=== PATIENT | male | born 1955 | race Caucasian/White ===

== ENCOUNTER 2018-12-07 14:07 | Day surgery (SDC) | payer MEDICARE, SELFPAY ==
--- NOTE | 2018-12-07 14:51 | SUR.PREOP ---
Pt arrived for colonoscopy. Note on check in sheet states Pt has an RV in parking lot, he is alone. While interviewing pt prior to procedure, pt states he did not do a bowel prep and has had 2 BM since yesterday which is the last time he ate or drank anything. Pt reports stool is formed and has blood. When questioned about the blood he states that the blood is liquid, no clots and surrounds the stool. Pt reports he saved the stool this morning in a jar and offers several times to go get it for us to see. This request was declined. Pt reports he never received any bowel prep information. Explained it was probably mailed to him which he states he did not check the mail every day. Informed Dr Cabrales of lack of bowel prep and plan is to reschedule him. Went to [facility] and spoke with Mishel, master scheduler. She provided bowel prep instructions which were handed to pt in waiting room. Pt asks if he can take a different laxative, explained to pt he must take the meds listed on the form and follow the directions. Mishel will call pt tomorrow to reschedule. Also informed pt that he will need someone with him for colonoscopy. Pt states that will be difficult but he will try.
== END 2018-12-07 14:10 | disposition home or self-care (01) ==
PROVIDERS: PCP Family Medicine; Visit Provider Surgery

== ENCOUNTER 2018-12-24 13:43 | Emergency (ER) | payer MEDICARE, SELFPAY ==
[2018-12-24 13:45] VITALS: BP 148/94; PULSE 67; RESP 18; TEMP 37.2; O2SAT 99; BMI 23.7
--- NOTE | 2018-12-24 14:15 | DI.RAD.S_ITS ---
PROCEDURE: XR ACUTE ABDOMEN SERIES INDICATIONS: Abdominal pain, no BM TECHNIQUE: One view chest and two views of the abdomen were acquired. COMPARISON: None. FINDINGS: Surgical changes and devices: There are postsurgical changes in the mediastinum compatible prior CABG. A prosthetic aortic valve is also noted. Chest: There are small bilateral pleural effusions, left greater than right, with associated bibasilar compressive atelectasis or consolidation. Mild pulmonary vascular prominence is noted suggestive of mild edema. No pneumoperitoneum. Abdomen: Bowel gas pattern demonstrates a moderate to large amount of colonic stool suggestive of constipation or obstipation. There is gas in the rectum. No suspicious calcifications. Bones: No suspicious bony lesions. IMPRESSION: 1. Moderate to large amount of colonic stool suggestive of constipation or obstipation. No definite bowel obstruction. 2. Small bilateral pleural effusions with associated bibasilar compressive atelectasis or consolidation. There is suspected mild pulmonary edema. Dictated by: Pranav Beard M.D. on 12/24/2018 at 14:13 Approved by: Pranav Beard M.D. on 12/24/2018 at 14:15
--- NOTE | 2018-12-24 14:31 | PC.NURSE ---
home and i have a friend that is a trauma nurse, that will help me i just need my colon cleared out, im fine, my turn around was yesterday.
[2018-12-24 14:33] LABS: Add Manual Diff / Slide Review NO; Basophils Absolute Auto 0 /uL (0-100); Basophils Percent Auto 0.3 % (0-2); Eosinophils Absolute Auto 100 /uL (0-450); Eosinophils Percent Auto 1.2 % (2-4); Hematocrit 38.6 % (41-53); Hemoglobin 13.4 g/dL (13.5-17.5); Lymphocytes Absolute Auto 800 /uL (1100-4500); Lymphocytes Percent Auto 7.1 % (25-40); Mean Corpuscular HGB Conc 34.7 % (30-36); Mean Corpuscular Hemoglobin 29.6 PG (26-34); Mean Corpuscular Volume 85.4 fL (80-100); Monocytes Absolute Auto 1700 /uL (0-900); Monocytes Percent Auto 15.9 % (3-14); Neutrophils Absolute Auto 8100 /uL (1500-7000); Neutrophils Percent Auto 75.5 % (50-75); Platelet Count 285 X10^3/uL (150-400); Red Blood Cell Count 4.52 X10^6/uL (4.5-5.9); Red Cell Distribution Width 14.9 % (11.6-14.8); White Blood Cell Count 10.7 X10^3/uL (4.5-11.0)
--- NOTE | 2018-12-24 14:33 | PC.NURSE ---
incision site intact, (chest).
[2018-12-24 14:40] LABS: INR 2.5 (0.9-1.3); Prothrombin Time 28.7 SECONDS (10.1-12.7)
[2018-12-24 14:43] LABS: PTT Partial Thromboplastin Tim 38 SECONDS (26.4-36.2)
[2018-12-24 14:46] LABS: BUN Creatinine Ratio 31.1 (6-22); Blood Urea Nitrogen 28 mg/dL (9-20); Calcium 8.6 mg/dL (8.4-10.2); Carbon Dioxide 28 mmol/L (22-32); Chloride 98 mmol/L (98-107); Creatine Kinase 96 U/L (55-170); Estimated Glomerular Filt Rate > 60.0 mL/min (>60); Glucose 109 mg/dL (80-110); HEMOLYSIS 21 (0-50); Magnesium 2.3 mg/dL (1.6-2.3); Potassium 4.1 mmol/L (3.4-5.1); Sodium 136 mmol/L (137-145)
[2018-12-24 15:00] VITALS: BP 139/90; PULSE 117; RESP 21; O2SAT 96
[2018-12-24 15:30] VITALS: BP 143/75; PULSE 115; RESP 20; O2SAT 96
[2018-12-24 16:08] VITALS: BP 130/82; PULSE 114; O2SAT 97
--- NOTE | 2018-12-24 16:32 | ED.CHESTPAIN ---
HPI - Chest Pain General Chief Complaint: Abdominal Pain Stated Complaint: RECENT HEART ATTACK Time Seen by Provider: 12/24/18 14:10 Source: patient Mode of arrival: Wheelchair Limitations: no limitations History of Present Illness HPI narrative: 63-year-old male with history of hypertension, hyperlipidemia, coronary artery disease, recent cardiac arrest with subsequent cardiac bypass and aortic root repair presents via cab after signing out [facility] from [facility] this morning. The patient still had bilateral chest tubes when he was requesting discharge, the staff in billing I am took significant effort to convince him to stay but in the end he was able to demonstrate capacity and chose to leave. He admits to feeling a bit weak and has occasional short of breath but has little in the way of significant chief complaints. Nearly immediately upon arrival here he is regretful for the way he left [facility] a.m. and seems to achieved some clarity regarding his options moving forward. complaint: other Onset (ago): day(s) Duration: intermittent Onset: during rest Pain location: substernal Severity: mild Quality: sharp Relieving factors: remaining still Context: recent surgery Treatments prior to arrival chest pain: none Related Data Home Medications Medication Instructions Recorded Confirmed cholecalciferol (vitamin D3) 1,000 1,000 unit PO DAILY 11/09/18 11/09/18 unit capsule magnesium citrate 125 mg capsule 125 mg PO DAILY cap 11/09/18 11/09/18 vitamin B complex 1 tab PO DAILY 11/09/18 11/09/18 vitamin E 200 unit capsule 200 unit PO DAILY 11/09/18 11/09/18 Allergies Allergy/AdvReac Type Severity Reaction Status Date / Time No Known Drug Allergies Allergy Verified 12/24/18 14:27 Review of Systems Constitutional Constitutional: Denies chills, Reports fatigue, Denies fever(s), Denies frequent falls, Denies lethargy and Reports weakness Eyes Eyes: Denies change in vision, Denies eye discharge, Denies irritation and Denies loss of vision ENT Ears, Nose, Mouth, and Throat: Denies change in voice, Denies dizziness, Denies neck pain, Denies sore throat and Denies throat swelling Cardiovascular Cardiovascular: Reports chest pain, Denies irregular heart rhythm, Denies lightheadedness, Denies palpitations, Denies dyspnea, Denies dyspnea on exertion and Denies orthopnea Respiratory Respiratory: Denies cough, Denies dyspnea, Denies dyspnea on exertion and Denies wheezing Gastrointestinal Gastrointestinal: Denies abdominal pain, Denies change in bowel habits, Denies diarrhea, Denies nausea and Denies vomiting Genitourinary Genitourinary: Denies hematuria, Denies flank pain, Denies urinary incontinence and Denies urinary urgency Musculoskeletal Musculoskeletal: Denies back pain, Denies muscle weakness, Denies neck pain, Denies numbness and Denies tingling Integumentary/Breasts Skin/Breast: Denies pruritus, Denies erythema, Denies rash and Denies wounds Neurologic Neurologic: Denies behavioral changes, Denies confusion, Denies dizziness, Denies frequent falls, Denies loss of vision, Denies numbness, Denies tingling and Reports weakness Psychiatric Psychiatric: Denies anxiety, Denies behavioral changes, Denies confusion, Denies depression, Denies homicidal ideation and Denies suicidal ideation Endocrine Endocrine: Reports fatigue, Denies flushing and Denies palpitations Hematologic/Lymphatic Hematologic/Lymphatic: Denies easy bruising Allergic/Immunologic Allergic/Immunologic: Denies urticaria, Denies throat swelling and Denies wheezing [facility] Medical History (Updated 12/24/18 @ 16:38 by Panfilo Kamara DO) Cardiac arrest (Acute) History of high blood pressure (Acute) Hx of stroke associated with dehydration (Resolved) Surgical History (Updated 12/24/18 @ 16:36 by Panfilo Kamara DO) S/P CABG x 2 (Acute) Social History substance use type: marijuana Social History substance use type: marijuana Exam Narrative Exam Narrative: GENERAL: [63] year old patient appears stated age. He appears a bit weak and unwell but in no significant distress. requires 2 people to assist him out of the wheelchair HEAD: Atraumatic. Normocephalic. EYES: Pupils equal round and reactive. Extraocular motions intact. No scleral icterus. No injection or drainage. ENT: Nose without bleeding, purulent drainage. Throat without erythema, tonsillar hypertrophy or exudate. Airway patent. NECK: Trachea midline. Non tender CARDIOVASCULAR: Regular rate and rhythm without murmurs, gallops, or rubs. Chest incision is clean, dry and intact RESPIRATORY: Clear to auscultation. Breath sounds equal bilaterally. No wheezes, rales, or rhonchi. GASTROINTESTINAL: Abdomen soft, non-tender, nondistended. EXTREMITIES: No edema or joint tenderness. BACK: Nontender without deformity or crepitance. No flank tenderness. NEURO: AOx3. SKIN: No rash or erythema of visible areas Initial Vital Signs Initial Vital Signs: Vital Signs Temperature 99 F 12/24/18 13:45 Pulse Rate 67 12/24/18 13:45 Respiratory Rate 18 12/24/18 13:45 Blood Pressure 148/94 H 12/24/18 13:45 Pulse Oximetry 99 12/24/18 13:45 Course Orders Ordered: Discontinued Medications Methylnaltrexone [place] (Relistor) 12 mg SUBCUT NOW ONE Stop: 12/24/18 14:26 Last Admin: 12/24/18 18:52 Dose: Not Given Documented by: MEISENB Consultations Consultation #1: Discussion with cardiothoracic surgeon at [facility], he is happy to accept patient back on his service Vital Signs Vital signs: Vital Signs - 8 hr 12/24/18 13:45 12/24/18 15:00 12/24/18 15:30 Temperature 99 F Pulse Rate 67 117 H 115 H Respiratory Rate 18 21 20 Blood Pressure 148/94 H Blood Pressure [Right Arm] 139/90 143/75 H Pulse Oximetry 99 96 96 12/24/18 16:08 Temperature Pulse Rate 114 H Respiratory Rate Blood Pressure Blood Pressure [Right Arm] 130/82 Pulse Oximetry 97 MDM - Chest Pain Lab Data Result diagrams: 12/24/18 14:20 12/24/18 14:20 Labs: Lab Results 12/24/18 12/24/18 12/24/18 Range/Units 14:20 14:20 14:20 WBC 10.7 (4.5-11.0) X10^3/uL RBC 4.52 (4.5-5.9) X10^6/uL Hgb 13.4 L (13.5-17.5) g/dL Hct 38.6 L (41-53) % MCV 85.4 (80-100) fL MCH 29.6 (26-34) PG MCHC 34.7 (30-36) % RDW 14.9 H (11.6-14.8) % Plt Count 285 (150-400) X10^3/uL Neut % (Auto) 75.5 H (50-75) % Lymph % (Auto) 7.1 L (25-40) % [place] % (Auto) 15.9 H (3-14) % Eos % (Auto) 1.2 L (2-4) % Baso % (Auto) 0.3 (0-2) % Neut # (Auto) 8100 H (5116-7862) /uL Lymph # (Auto) 800 L (9303-8952) /uL [place] # (Auto) 1700 H (0-900) /uL Eos # (Auto) 100 (0-450) /uL Baso # (Auto) 0 (0-100) /uL PT 28.7 H (10.1-12.7) SECONDS INR 2.5 H (0.9-1.3) APTT 38 H (26.4-36.2) SECONDS Sodium 136 L (137-145) mmol/L Potassium 4.1 (3.4-5.1) mmol/L Chloride 98 (98-107) mmol/L Carbon Dioxide 28 (22-32) mmol/L BUN 28 H (9-20) mg/dL Creatinine 0.90 (0.66-1.25) mg/dL Estimated GFR > 60.0 (>60) mL/min BUN/Creatinine Ratio 31.1 H (6-22) Glucose 109 (80-110) mg/dL Lactate (0.7-2.1) mmol/L Calcium 8.6 (8.4-10.2) mg/dL Magnesium 2.3 (1.6-2.3) mg/dL Total Creatine Kinase 96 (55-170) U/L CK-MB (CK-2) TNP CK-MB (CK-2) Rel Index TNP Troponin I 1.250 H* (0.01-0.034) ng/mL 12/24/18 Range/Units 15:15 WBC (4.5-11.0) X10^3/uL RBC (4.5-5.9) X10^6/uL Hgb (13.5-17.5) g/dL Hct (41-53) % MCV (80-100) fL MCH (26-34) PG MCHC (30-36) % RDW (11.6-14.8) % Plt Count (150-400) X10^3/uL Neut % (Auto) (50-75) % Lymph % (Auto) (25-40) % [place] % (Auto) (3-14) % Eos % (Auto) (2-4) % Baso % (Auto) (0-2) % Neut # (Auto) (7898-4361) /uL Lymph # (Auto) (9302-3235) /uL [place] # (Auto) (0-900) /uL Eos # (Auto) (0-450) /uL Baso # (Auto) (0-100) /uL PT (10.1-12.7) SECONDS INR (0.9-1.3) APTT (26.4-36.2) SECONDS Sodium (137-145) mmol/L Potassium (3.4-5.1) mmol/L Chloride (98-107) mmol/L Carbon Dioxide (22-32) mmol/L BUN (9-20) mg/dL Creatinine (0.66-1.25) mg/dL Estimated GFR (>60) mL/min BUN/Creatinine Ratio (6-22) Glucose (80-110) mg/dL Lactate 1.0 (0.7-2.1) mmol/L Calcium (8.4-10.2) mg/dL Magnesium (1.6-2.3) mg/dL Total Creatine Kinase (55-170) U/L CK-MB (CK-2) CK-MB (CK-2) Rel Index Troponin I (0.01-0.034) ng/mL Imaging Data Chest x-ray: Radiologist's impression: Chart [facility] DATE TYPE STATUS AUTHOR Hx 12/24/18 14:15 Pranav BeardierTremaine 63, M1955 REG ER, Main ED R02 187.96cm 83.915kg BMI: 23.8kg/m? Abdominal Pain Search Chart No Data to Display ONSET Today 16:08 Tremaine Hoskins 63 M [address] [address] XRay Report Signed Patient: Lenard HoskinsjodyMR#: [id number] : 4Acct:[id number] Age/Sex: 63 / MDate of Service: 12/24/18 Loc: ED Accession Number: [id number] Procedure: XR acute abdomen series Ordering Provider: Panfilo Kamara D.O. PROCEDURE: XR ACUTE ABDOMEN SERIES INDICATIONS: Abdominal pain, no BM TECHNIQUE: One view chest and two views of the abdomen were acquired. COMPARISON: None. FINDINGS: Surgical changes and devices: There are postsurgical changes in the mediastinum compatible prior CABG. A prosthetic aortic valve is also noted. Chest: There are small bilateral pleural effusions, left greater than right, with associated bibasilar compressive atelectasis or consolidation. Mild pulmonary vascular prominence is noted suggestive of mild edema. No pneumoperitoneum. Abdomen: Bowel gas pattern demonstrates a moderate to large amount of colonic stool suggestive of constipation or obstipation. There is gas in the rectum. No suspicious calcifications. Bones: No suspicious bony lesions. IMPRESSION: 1. Moderate to large amount of colonic stool suggestive of constipation or obstipation. No definite bowel obstruction. 2. Small bilateral pleural effusions with associated bibasilar compressive atelectasis or consolidation. There is suspected mild pulmonary edema. Dictated by: Pranav Beard M.D. on 12/24/2018 at 14:13 Approved by: Pranav Beard M.D. on 12/24/2018 at 14:15 Critical Care Time Critical Care Time Critical Care Time: Yes Total Critical Care Time: 35 Attestation: The high probability of a clinically significant, sudden or life threatening deterioration of the [cardiovascular] system(s) required my full and direct attention, intervention and personal management. The aggregate critical care time was [35] minutes. This time is in addition to time spent performing reported procedures but includes the following: [x] Data Review and interpretation [x] Patient assessment and monitoring of vital signs x Documentation [x] Medication orders and management Discharge Plan Departure Patient Disposition: [facility] Clinical Impression: Pain at surgical site, Troponin I above reference range Chest pain Qualifiers: Chest pain type: chest pain on breathing Qualified Code(s): R07.1 - Chest pain on breathing Discharge Date/Time: 12/24/18 17:30 Prescriptions: No Action vitamin E 200 unit capsule 200 unit PO DAILY RF: 0 vitamin B complex [B Complex-Vitamin B12] tablet 1 tab PO DAILY RF: 0 cholecalciferol (vitamin D3) 1,000 unit capsule 1,000 unit PO DAILY RF: 0 magnesium citrate 125 mg capsule 125 mg PO DAILY RF: 0 Referrals: Duke Yen MD [Primary Care Provider] -
[2018-12-24 17:00] VITALS: BP 140/100; PULSE 115; RESP 21; O2SAT 96
[2018-12-24 17:30] VITALS: BP 142/101; PULSE 116; RESP 21; O2SAT 98
== END 2018-12-24 17:30 | disposition short-term general hospital (02) ==
PROVIDERS: Emergency Provider Emergency Medicine; PCP Family Medicine
DX: G89.18 Other acute postprocedural pain (principal); R74.8 Abnormal levels of other serum enzymes; R07.1 Chest pain on breathing
CPT/HCPCS: 36415; 36591; 74022; 80048; 82550; 83605; 83735; 84484; 85025; 85610; 85730; 99283; 99284

== ENCOUNTER 2020-06-23 22:52 | Emergency (ER) | payer MEDICARE, MEDICAID, SELFPAY ==
--- NOTE | 2020-06-23 23:17 | ED.ABDPAIN ---
HPI - Abdominal Pain General Chief Complaint: Abdominal Pain Stated Complaint: INFECTION IN THE ANUS Time Seen by Provider: 06/23/20 23:04 Source: patient Mode of arrival: Ambulatory Limitations: no limitations History of Present Illness HPI narrative: 64-year-old male with history of hypertension, hyperlipidemia, coronary artery disease, as well as Crohn's presents with severe and difficulty with bowel movements for the past few days. He was sent by his primary care provider to be evaluated for the potential of a rectal abscess. He has had a poor appetite but denies any nausea, vomiting or diarrhea. He denies fever or shaking chills. He denies runny nose, sore throat or cough. He has severe rectal pain that is worse when he moves, sits or has a bowel movement. It is constant at other times but not quite as severe. He denies the passage of any purulence or blood. MD complaint: other Onset (ago): day(s) Pain Consistency: constant Severity: severe Radiation: none Migration to: no migration Exacerbating factors: bowel movement Related Data Home Medications Medication Instructions Recorded Confirmed cholecalciferol (vitamin D3) 25 1,000 unit PO DAILY 11/09/18 11/09/18 mcg (1,000 unit) capsule magnesium citrate 125 mg capsule 125 mg PO DAILY cap 11/09/18 11/09/18 vitamin B complex 1 tab PO DAILY 11/09/18 11/09/18 vitamin E 200 unit capsule 200 unit PO DAILY 11/09/18 11/09/18 Allergies Allergy/AdvReac Type Severity Reaction Status Date / Time No Known Drug Allergies Allergy Verified 12/24/18 14:27 Review of Systems Constitutional Constitutional: Denies chills, Denies fatigue, Denies fever(s), Denies frequent falls, Denies lethargy and Denies weakness Eyes Eyes: Denies change in vision, Denies eye discharge, Denies irritation and Denies loss of vision ENT Ears, Nose, Mouth, and Throat: Denies change in voice, Denies dizziness, Denies neck pain, Denies sore throat and Denies throat swelling Cardiovascular Cardiovascular: Denies chest pain, Denies irregular heart rhythm, Denies lightheadedness, Denies palpitations, Denies dyspnea, Denies dyspnea on exertion and Denies orthopnea Respiratory Respiratory: Denies cough, Denies dyspnea, Denies dyspnea on exertion and Denies wheezing Gastrointestinal Gastrointestinal: Denies abdominal pain, Denies change in bowel habits, Denies diarrhea, Denies nausea and Denies vomiting Comments: Rectal pain Musculoskeletal Musculoskeletal: Denies neck pain and Denies numbness Integumentary/Breasts Skin/Breast: Denies pruritus, Denies erythema, Denies rash and Denies wounds Neurologic Neurologic: Denies behavioral changes, Denies confusion, Denies dizziness, Denies frequent falls, Denies loss of vision, Denies numbness and Denies weakness Psychiatric Psychiatric: Denies anxiety, Denies behavioral changes, Denies confusion, Denies depression, Denies homicidal ideation and Denies suicidal ideation Endocrine Endocrine: Denies fatigue, Denies flushing and Denies palpitations Hematologic/Lymphatic Hematologic/Lymphatic: Denies easy bruising Allergic/Immunologic Allergic/Immunologic: Denies urticaria, Denies throat swelling and Denies wheezing Patient History Medical History Cardiac arrest History of high blood pressure Hx of stroke associated with dehydration Surgical History S/P CABG x 2 Social History substance use type: marijuana Substance Use Type: does not use and marijuana Exam Narrative Exam Narrative: GENERAL: [64] year old patient appears stated age. Well-nourished, well-developed patient, in mild distress. Obviously in pain, rubbing his bottom HEAD: Atraumatic. Normocephalic. EYES: Pupils equal round and reactive. Extraocular motions intact. No scleral icterus. No injection or drainage. ENT: Nose without bleeding, purulent drainage. Throat without erythema, tonsillar hypertrophy or exudate. Airway patent. NECK: Trachea midline. Non tender CARDIOVASCULAR: Regular rate and rhythm without murmurs, gallops, or rubs. RESPIRATORY: Clear to auscultation. Breath sounds equal bilaterally. No wheezes, rales, or rhonchi. GASTROINTESTINAL: Abdomen soft, non-tender, nondistended RECTAL: Severe pain on exam, no obvious external manifestation of disease EXTREMITIES: No edema or joint tenderness. BACK: Nontender without deformity or crepitance. No flank tenderness. NEURO: AOx3. 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) Stat 06/24/20 01:58 Prothrombin Time INR Stat Sodium Chloride (Normal Saline 0.9%) 1,000 mls @ 150 mls/hr IV CONT ALAN Discontinued Medications Hydromorphone HCl (Hydromorphone 0.5 Mg Inj) 0.5 mg IV NOW ONE Stop: 06/24/20 01:24 Last Admin: 06/24/20 01:27 Dose: 0.5 mg Documented by: RENNY Sodium Chloride (Normal Saline 0.9%) 1,000 mls @ 1,000 mls/hr IV BOLUS ONE Stop: 06/24/20 00:22 Last Admin: 06/24/20 01:04 Dose: 1,000 mls/hr Documented by: RENNY Piperacillin/Tazobactam/Dextrose (Zosyn) 3.375 gm in 50 mls @ 100 mls/hr IV NOW ONE Stop: 06/24/20 02:14 Last Admin: 06/24/20 01:50 Dose: 100 mls/hr Documented by: RENNY Consultations Consultation #1: call to Gen Surgery (Tanika) to discuss case. She has reviewed CT and suspects more involvement than what radiology read, looks more proximal involvement than what is read on CT and she questions whether there is UC vs. Crohn's. Added complexity due to cardiac history and anticoagulation. Requests transfer to facility with GI and cardio as they will likely be needed Consultation #2: call to [facility] Surgery at [facility] to discuss case. He is happy with treatment and to be involved, but requests transfer directly to ED. I did inquire about direct admission to medicine, but was directed to the ED. Consultation #3: call to Dr. Blair at [facility] ED, happy to accept in transfer Vital Signs Vital signs: Vital Signs - 8 hr 06/23/20 23:23 Temperature 99.0 F Pulse Rate 89 Respiratory Rate 22 Blood Pressure 144/69 H Pulse Oximetry 100 MDM - Abdominal Pain Lab Data Result diagrams: 06/23/20 23:45 06/23/20 23:45 Labs: Lab Results 06/23/20 06/23/20 06/23/20 Range/Units 23:45 23:45 23:45 WBC 10.1 (4.5-11.0) X10^3/uL RBC 5.40 (4.5-5.9) X10^6/uL Hgb 15.6 (13.5-17.5) g/dL Hct 46.8 (41-53) % MCV 86.7 (80-100) fL MCH 28.9 (26-34) PG MCHC 33.3 (30-36) % RDW 14.5 (11.6-14.8) % Plt Count 219 (150-400) X10^3/uL Neut % (Auto) 70.1 (50-75) % Lymph % (Auto) 12.0 L (25-40) % [place] % (Auto) 10.3 (3-14) % Eos % (Auto) 7.0 H (2-4) % Baso % (Auto) 0.6 (0-2) % Neut # (Auto) 7100 H (8841-8123) /uL Lymph # (Auto) 1200 (2950-8435) /uL [place] # (Auto) 1000 H (0-900) /uL Eos # (Auto) 700 H (0-450) /uL Baso # (Auto) 100 (0-100) /uL PT 22.2 H (10.1-12.7) SECONDS INR 2.0 H (0.9-1.3) Sodium 139 (137-145) mmol/L Potassium 4.3 (3.4-5.1) mmol/L Chloride 105 (98-107) mmol/L Carbon Dioxide 27 (22-32) mmol/L BUN 30 H (9-20) mg/dL Creatinine 1.08 (0.66-1.25) mg/dL Estimated GFR > 60.0 (>60) mL/min BUN/Creatinine Ratio 27.8 H (6-22) Glucose 104 (80-110) mg/dL Calcium 9.2 (8.4-10.2) mg/dL Total Bilirubin 0.7 (0.2-1.3) mg/dL AST 25 (17-59) IU/L ALT 17 (<50) IU/L Alkaline Phosphatase 101 (38-126) U/L Total Protein 6.6 (6.3-8.2) g/dL Albumin 4.0 (3.5-5.0) g/dL Globulin 2.6 (1.7-4.1) g/dL Albumin/Globulin Ratio 1.5 (1.0-2.8) Lipase 79 (23-300) U/L Imaging Data CT scan - abdomen/pelvis: Radiologist's Impression: Inflammatory changes in the distal descending colon down to rectum associated with posterior perirectal abscess measuring 3.4 cm in the greatest diameter. No obstruction, ascites or free air. Critical Care Time Critical Care Time Critical Care Time: Yes Total Critical Care Time: 30 Attestation: The high probability of a clinically significant, sudden or life threatening deterioration of the [GI/CV] system(s) required my full and direct attention, intervention and personal management. The aggregate critical care time was [30] minutes. This time is in addition to time spent performing reported procedures but includes the following: [x] Data Review and interpretation [x] Patient assessment and monitoring of vital signs [x] Documentation [x] Medication orders and management Discharge Plan Departure Patient Disposition: [facility] Clinical Impression: Abscess, perirectal Prescriptions: No Action vitamin E 200 unit capsule 200 unit PO DAILY RF: 0 vitamin B complex [B Complex-Vitamin B12] tablet 1 tab PO DAILY RF: 0 cholecalciferol (vitamin D3) 1,000 unit capsule 1,000 unit PO DAILY RF: 0 magnesium citrate 125 mg capsule 125 mg PO DAILY RF: 0 Referrals: Duke Yen MD [Primary Care Provider] -
[2020-06-23 23:23] VITALS: BP 144/69; PULSE 89; RESP 22; TEMP 37.2; O2SAT 100
--- NOTE | 2020-06-23 23:36 | DI.CT.S_ITS ---
PROCEDURE: CT ABDOMEN PELVIS W CON INDICATIONS: severe rectal pain with bowel movement, sitting, history of ulcerative colitis TECHNIQUE: After the administration of oral and intravenous contrast, 5 mm thick sections acquired from the diaphragms to the symphysis. 5 mm thick coronal and sagittal reformats were performed. For radiation dose reduction, the following was used: automated exposure control, adjustment of mA and/or kV according to patient size. COMPARISON: None. FINDINGS: Image quality: Excellent. ABDOMEN: Lung bases: Scattered subsegmental atelectasis and/or scarring. No focal consolidation. Heart is mildly enlarged. Coronary artery calcifications are present. Moderate hiatal hernia. Solid organs: Liver is normal in size and enhancement. The gallbladder is grossly unremarkable. Biliary system is non-dilated. Pancreas enhances normally. Spleen is normal in size and enhancement. No adrenal nodules. No hydronephrosis. Multiple renal cysts measuring up to 3.6 cm on the right and 2.8 cm on the left. Additional Subcentimeter renal foci, statistically cysts, although technically too small to characterize accurately and therefore nonspecific. There is distal sigmoid colon and rectal circumferential mural thickening . Rim enhancing fluid collection seen posterior to the rectum measuring approximately 2.2 x 3.2 x 3.4 cm in keeping with peritoneal abscess. No free fluid or air. Colonic diverticulosis is seen without evidence of acute complication. Normal appendix. Nodes and vessels: No retroperitoneal or mesenteric adenopathy. Aorta and inferior vena cava are normal in caliber. Scattered vascular calcifications incidentally noted in the aorta. Miscellaneous: No ventral hernias. PELVIS: Genitourinary: Bladder wall thickness is normal. Miscellaneous: No inguinal hernias or adenopathy. Bones: Spondylytic changes and facet arthropathy. No vertebral body compression fracture. IMPRESSION: Distal colon and rectal wall thickening in keeping with infectious/inflammatory proctocolitis. Rim enhancing fluid collection posterior to the rectal suggestive of perirectal abscess (3.4 cm). Additional chronic and incidental findings as above. Findings concordant with the preliminary study interpretation provided at the time of the exam. Dictated by: Jean Carlos Piedra M.D. on 06/24/2020 at 8:22 Approved by: Jean Carlos Piedra M.D. on 06/24/2020 at 8:28
[2020-06-23 23:52] LABS: Add Manual Diff / Slide Review NO; Basophils Absolute Auto 100 /uL (0-100); Basophils Percent Auto 0.6 % (0-2); Eosinophils Absolute Auto 700 /uL (0-450); Hematocrit 46.8 % (41-53); Hemoglobin 15.6 g/dL (13.5-17.5); Lymphocytes Absolute Auto 1200 /uL (1100-4500); Mean Corpuscular HGB Conc 33.3 % (30-36); Mean Corpuscular Hemoglobin 28.9 PG (26-34); Mean Corpuscular Volume 86.7 fL (80-100); Monocytes Absolute Auto 1000 /uL (0-900); Monocytes Percent Auto 10.3 % (3-14); Neutrophils Absolute Auto 7100 /uL (1500-7000); Neutrophils Percent Auto 70.1 % (50-75); Platelet Count 219 X10^3/uL (150-400); Red Cell Distribution Width 14.5 % (11.6-14.8); White Blood Cell Count 10.1 X10^3/uL (4.5-11.0)
[2020-06-24 00:02] LABS: Alanine Aminotransferase 17 IU/L (<50); Alkaline Phosphatase 101 U/L (38-126); Aspartate Aminotransferase 25 IU/L (17-59); BUN Creatinine Ratio 27.8 (6-22); Bilirubin Total 0.7 mg/dL (0.2-1.3); Blood Urea Nitrogen 30 mg/dL (9-20); Calcium 9.2 mg/dL (8.4-10.2); Carbon Dioxide 27 mmol/L (22-32); Chloride 105 mmol/L (98-107); Estimated Glomerular Filt Rate > 60.0 mL/min (>60); Globulin 2.6 g/dL (1.7-4.1); Glucose 104 mg/dL (80-110); Potassium 4.3 mmol/L (3.4-5.1); Sodium 139 mmol/L (137-145); Total Protein 6.6 g/dL (6.3-8.2)
[2020-06-24 00:03] LABS: Albumin Globulin Ratio 1.5 (1.0-2.8); HEMOLYSIS < 15 (0-50); Lipase 79 U/L (23-300)
[2020-06-24] MEDS: SODIUM CHLORIDE 0.9% 1,000 ML 1000 ML IV (01:04)
[2020-06-24] MEDS: HYDROMORPHONE 0.5 MG INJ IV (01:27)
[2020-06-24] MEDS: PIPERACILLIN-TAZO 3.375 GM/50 ML FROZ.PIGGY IV (01:50)
[2020-06-24 02:10] LABS: Prothrombin Time 22.2 SECONDS (10.1-12.7)
[2020-06-24 02:55] LABS: COVID19 - ADMIT (NP swab/PCR) Negative (Negative)
[2020-06-24] MEDS: SODIUM CHLORIDE 0.9% 1,000 ML 150 ML IV (03:12)
[2020-06-24] MEDS: HYDROMORPHONE 1 MG INJ IV (03:12)
[2020-06-24 03:25] VITALS: BP 111/68; PULSE 54; RESP 15; O2SAT 95
== END 2020-06-24 03:30 | disposition short-term general hospital (02) ==
PROVIDERS: Emergency Provider Emergency Medicine; PCP Family Medicine
DX: K61.1 Rectal abscess (principal)
CPT/HCPCS: 36415; 74177; 80053; 83690; 85025; 85610; 87635; 96361; 96365; 96375; 99284; J1170; J2543; Q9967

== ENCOUNTER → 2020-12-10 11:13 | Outpatient (CLI) | payer MEDICARE, MEDICAID, SELFPAY ==
[2020-12-10 20:25] LABS: Hematocrit 49.4 % (41-53); Hemoglobin 16.1 g/dL (13.5-17.5); Mean Corpuscular HGB Conc 32.5 % (30-36); Mean Corpuscular Hemoglobin 28.9 PG (26-34); Platelet Count 185 X10^3/uL (150-400); Red Blood Cell Count 5.56 X10^6/uL (4.5-5.9); White Blood Cell Count 6.2 X10^3/uL (4.5-11.0)
[2020-12-10 20:31] LABS: Alanine Aminotransferase 19 IU/L (<50); Albumin 3.9 g/dL (3.5-5.0); Albumin Globulin Ratio 1.6 (1.0-2.8); Alkaline Phosphatase 88 U/L (38-126); Aspartate Aminotransferase 32 IU/L (17-59); BUN Creatinine Ratio 20.5 (6-22); Bilirubin Total 0.8 mg/dL (0.2-1.3); Blood Urea Nitrogen 25 mg/dL (9-20); Calcium 9.2 mg/dL (8.4-10.2); Carbon Dioxide 31 mmol/L (22-32); Chloride 105 mmol/L (98-107); Estimated Glomerular Filt Rate 59.2 mL/min (>60); Globulin 2.5 g/dL (1.7-4.1); Glucose 79 mg/dL (80-110); HEMOLYSIS < 15 (0-50); Potassium 4.5 mmol/L (3.4-5.1); Sodium 140 mmol/L (137-145); Total Protein 6.4 g/dL (6.3-8.2)
[2020-12-10 21:04] LABS: INR 2.9 (0.9-1.3); Prothrombin Time 33.6 SECONDS (10.1-12.7)
[2020-12-10 21:05] LABS: Ferritin 19 ng/mL (18-464)
[2020-12-10 21:38] LABS: Add Manual Diff / Slide Review NO; Basophils Percent Auto 0.9 % (0-2); Eosinophils Absolute Auto 700 /uL (0-450); Eosinophils Percent Auto 10.6 % (2-4); Lymphocytes Absolute Auto 1400 /uL (1100-4500); Lymphocytes Percent Auto 21.7 % (25-40); Monocytes Absolute Auto 600 /uL (0-900); Monocytes Percent Auto 10.4 % (3-14); Neutrophils Absolute Auto 3500 /uL (1500-7000); Neutrophils Percent Auto 56.4 % (50-75)
[2020-12-10 21:39] LABS: Basophils Absolute Auto 100 /uL (0-100)
== END ==
PROVIDERS: PCP Internal Medicine Cardiovascular Disease; Visit Provider Internal Medicine Cardiovascular Disease
DX: R42 Dizziness and giddiness; I48.91 Unspecified atrial fibrillation; I46.9 Cardiac arrest, cause unspecified; K51.913 Ulcerative colitis, unspecified with fistula
CPT/HCPCS: 80053; 82728; 83735; 85025; 85610

== ENCOUNTER → 2021-08-03 15:01 | Outpatient (CLI) | payer MEDICARE, MEDICAID, SELFPAY ==
[2021-08-07 18:08] LABS: Calprotectin, Stool 180 ug/g (0-120)
== END ==
PROVIDERS: PCP Internal Medicine Cardiovascular Disease; Visit Provider Family Medicine
DX: E44.0 Moderate protein-calorie malnutrition (principal); E78.2 Mixed hyperlipidemia; I10 Essential (primary) hypertension; I25.810 Atherosclerosis of coronary artery bypass graft(s) without angina pectoris; K51.90 Ulcerative colitis, unspecified, without complications; K62.89 Other specified diseases of anus and rectum; R63.4 Abnormal weight loss; Z86.74 Personal history of sudden cardiac arrest; Z95.1 Presence of aortocoronary bypass graft; Z98.890 Other specified postprocedural states
CPT/HCPCS: 83993

== ENCOUNTER → 2021-11-20 07:00 | Outpatient (CLI) | payer MEDICARE, MEDICAID, SELFPAY ==
[2021-11-20 20:18] LABS: COVID19 - ORCAS (NP or Nasal) Negative (Negative)
== END ==
PROVIDERS: PCP Internal Medicine Cardiovascular Disease; Visit Provider Family Medicine
DX: Z20.822 Contact with and (suspected) exposure to COVID-19 (principal); Z01.812 Encounter for preprocedural laboratory examination
CPT/HCPCS: C9803; U0003

== ENCOUNTER → 2022-01-05 11:59 | Outpatient (CLI) | payer MEDICARE, MEDICAID, SELFPAY ==
[2022-01-06 02:21] LABS: Cholesterol 125 mg/dL (140-199); HDL Cholesterol 49 mg/dL (40-60); LDL Cholesterol Calculated 58 mg/dL (<100); Triglycerides 89 mg/dL (35-150)
[2022-01-06 04:40] LABS: LDL Cholesterol Direct 58 mg/dL (<100)
== END ==
PROVIDERS: PCP Internal Medicine Cardiovascular Disease; Visit Provider Nurse Practitioner
DX: I25.10 Atherosclerotic heart disease of native coronary artery without angina pectoris (principal); E78.5 Hyperlipidemia, unspecified
CPT/HCPCS: 80061; 83721

== ENCOUNTER → 2022-01-06 13:50 | Outpatient (CLI) | payer MEDICARE, MEDICAID, SELFPAY ==
[2022-01-11 16:08] LABS: Calprotectin, Stool 315 ug/g (0-120)
== END ==
PROVIDERS: Internal Medicine Gastroenterology; PCP Internal Medicine Cardiovascular Disease
DX: K51.90 Ulcerative colitis, unspecified, without complications (principal)
CPT/HCPCS: 83993

== ENCOUNTER → 2022-04-13 13:47 | Outpatient (CLI) | payer MEDICARE, MEDICAID, SELFPAY ==
[2022-04-13 20:16] LABS: Add Manual Diff / Slide Review NO; Basophils Absolute Auto 100 /uL (0-100); Basophils Percent Auto 0.9 % (0-2); Eosinophils Absolute Auto 200 /uL (0-450); Eosinophils Percent Auto 2.6 % (2-4); Hematocrit 39.9 % (41-53); Hemoglobin 13.2 g/dL (13.5-17.5); Lymphocytes Absolute Auto 1000 /uL (1100-4500); Lymphocytes Percent Auto 11.2 % (25-40); Mean Corpuscular Volume 78.8 fL (80-100); Monocytes Absolute Auto 800 /uL (0-900); Monocytes Percent Auto 8.7 % (3-14); Neutrophils Absolute Auto 6600 /uL (1500-7000); Neutrophils Percent Auto 76.6 % (50-75); Platelet Count 303 X10^3/uL (150-400); Red Blood Cell Count 5.07 X10^6/uL (4.5-5.9); Red Cell Distribution Width 15.4 % (11.6-14.8); White Blood Cell Count 8.6 X10^3/uL (4.5-11.0)
[2022-04-13 20:27] LABS: Alanine Aminotransferase 17 IU/L (<50); Albumin 4.2 g/dL (3.5-5.0); Albumin Globulin Ratio 1.4 (1.0-2.8); Alkaline Phosphatase 77 U/L (38-126); Aspartate Aminotransferase 41 IU/L (17-59); BUN Creatinine Ratio 23.9 (6-22); Bilirubin Direct 0.3 mg/dL (0.0-0.4); Bilirubin Total 0.6 mg/dL (0.2-1.3); Blood Urea Nitrogen 27 mg/dL (9-20); C-Reactive Protein Quant < 0.5 mg/dL (<1.0); Calcium 9.2 mg/dL (8.4-10.2); Carbon Dioxide 30 mmol/L (22-32); Chloride 102 mmol/L (98-107); Estimated Glomerular Filt Rate > 60 mL/min (>60); Globulin 2.9 g/dL (1.7-4.1); Glucose 105 mg/dL (80-110); HEMOLYSIS < 15 (0-50); Sodium 140 mmol/L (137-145); Total Protein 7.1 g/dL (6.3-8.2)
[2022-04-13 21:23] LABS: Erythrocyte Sedimentation Rate 3 MM/HR (0-15)
== END ==
PROVIDERS: PCP Internal Medicine Cardiovascular Disease; Visit Provider Internal Medicine Gastroenterology
DX: K51.90 Ulcerative colitis, unspecified, without complications (principal)
CPT/HCPCS: 80053; 82248; 85025; 85651; 86140

== ENCOUNTER → 2022-04-14 13:27 | Outpatient (CLI) | payer MEDICARE, MEDICAID, SELFPAY ==
[2022-04-17 15:11] LABS: Calprotectin, Stool 253 ug/g (0-120)
== END ==
PROVIDERS: PCP Internal Medicine Cardiovascular Disease; Visit Provider Internal Medicine Gastroenterology
DX: K51.90 Ulcerative colitis, unspecified, without complications (principal)
CPT/HCPCS: 83993

== ENCOUNTER → 2022-06-24 14:51 | Outpatient (CLI) | payer MEDICARE, MEDICAID, SELFPAY ==
--- NOTE | 2022-06-24 14:59 | DI.DEXA.S_ITS ---
Indication: history of glucocorticoids; Referring Provider: RUBEN CARABALLO Study: Bone densitometry was performed. Exam Date: June 24, 2022 Accession number: [id number] Bone Density: Region BMD T-score Z-score Classification AP Spine(L1-L4) 0.990 -0.5 -0.1 Normal Femoral Neck (Left) 0.648 -1.8 -0.9 Osteopenia Total Hip (Left) 0.724 -1.8 -1.4 Osteopenia Femoral Neck (Right) 0.626 -2.0 -1.1 Osteopenia Total Hip (Right) 0.747 -1.6 -1.3 Osteopenia Total Hip Mean 0.735 -1.7 -1.4 Osteopenia World Health Organization criteria for BMD impression classify patients as: Normal (T-score at or above -1.0), Osteopenia (T-score between -1.0 and -2.5), or Osteoporosis (T-score at or below -2.5). 10-year Fracture Risk(1): Major Osteoporotic Fracture 11% Hip Fracture 3.5% Reported Risk Factors: [place] (), Neck BMD=0.626, BMI=20.5, glucocorticoids (1) FRAX(R) Version 3.08. Fracture probability calculated for an untreated patient. Fracture probability may be lower if the patient has received treatment. Impression: The patient has low bone mass, based on the Right Femoral Neck T-score. The patient has an estimated ten-year risk of hip fracture of 3.5% and an estimated ten-year risk of major fracture of 11%, based on the WHO FRAX algorithm. The patient has risk factors, including: history of glucocorticoid therapy. Discussion: BONE DENSITY IS LOW AT ONE OR MORE SKELETAL SITES. THE PATIENT'S BMD AND CLINICAL RISK FACTORS CONTRIBUTE TO THIS PATIENT'S INCREASED RISK OF FRACTURE. This patient's lowest T-score is low at one or more skeletal sites. It meets the World Health Organization's (WHO) criteria for ?low bone mass? (T-score between -1.0 and -2.5). The patient's 10-year risk of hip fracture as calculated by FRAX exceeds the threshold where pharmacological therapy is recommended by the National Osteoporosis Foundation (NOF). However, all treatment decisions require clinical judgment and consideration of individual patient factors, including patient preferences, comorbidities, previous drug use, risk factors not captured in the FRAX model (e.g., frailty, falls, vitamin D deficiency, increased bone turnover, interval significant decline in bone density) and possible under or overestimation of fracture risk by FRAX. The patient should follow a healthful lifestyle (good nutrition with adequate calcium and vitamin D, and appropriate weight-bearing exercise). Follow-Up: Consider repeating this study in 2 years to reassess this patient's status, or sooner if there is some new clinical indication. Reported by: ALDEN NOVOA M.D. on 06/24/2022 3:10:00 PM.
== END ==
PROVIDERS: PCP Family Medicine; Referring Provider Family Medicine; Visit Provider Family Medicine
DX: M85.89 Other specified disorders of bone density and structure, multiple sites (principal); Z79.52 Long term (current) use of systemic steroids
CPT/HCPCS: 77080

== ENCOUNTER 2022-12-07 15:23 | Emergency (ER) | payer MEDICARE, MEDICAID, SELFPAY ==
[2022-12-07] VITALS (20 sets, daily range): BP systolic 149–194; BP diastolic 75–92; PULSE 58–90; RESP 13–25; TEMP 37.1; O2SAT 95–100; BMI 18.4
--- NOTE | 2022-12-07 15:41 | DI.RAD.S_ITS ---
PROCEDURE: XR CHEST 1V INDICATIONS: chest pain TECHNIQUE: One view of the chest was acquired. COMPARISON: None. FINDINGS: Surgical changes and devices: CABG postsurgical changes. Lungs and pleura: Lungs are clear. No pleural effusions or pneumothorax. Mediastinum: Mediastinal contours appear normal. Heart is enlarged. Bones and chest wall: No suspicious bony lesions. Overlying soft tissues appear unremarkable. IMPRESSION: No acute cardiopulmonary disease process. Dictated by: Josefina Bravo MD, PhD on 12/07/2022 at 15:52 Approved by: Josefina Bravo MD, PhD on 12/07/2022 at 15:52
--- NOTE | 2022-12-07 15:54 | DI.RAD.S_ITS ---
PROCEDURE: XR KNEE RT 3V INDICATIONS: Fall. Pain. TECHNIQUE: 3 views of the knee were acquired. COMPARISON: [facility] ([place]), CR, XR KNEE RT 3V, 03/04/2022, 14:15. FINDINGS: Bones: No fractures or dislocations. No suspicious bony lesions. Soft tissues: No joint effusion. No suspicious soft tissue calcifications. IMPRESSION: No fracture. No acute osseous lesion. If symptoms and/or clinical suspicion for pathology persists, further assessment with repeat radiographs (7-10 days) or advanced imaging (e.g. CT, MRI or bone scan) should be considered. Dictated by: Josefina Bravo MD, PhD on 12/07/2022 at 16:20 Approved by: Josefina Bravo MD, PhD on 12/07/2022 at 16:20
--- NOTE | 2022-12-07 15:54 | DI.RAD.S_ITS ---
PROCEDURE: XR KNEE LT 3V INDICATIONS: fall TECHNIQUE: 3 views of the knee were acquired. COMPARISON: [facility] ([place]), CR, XR KNEE LT 3V, 10/26/2022, 15:31. FINDINGS: Bones: No fractures or dislocations. No suspicious bony lesions. Soft tissues: No joint effusion. No suspicious soft tissue calcifications. IMPRESSION: No fracture. No osseous lesion. If symptoms and/or clinical suspicion for pathology persists, further assessment with repeat radiographs (7-10 days) or advanced imaging (e.g. CT, MRI or bone scan) should be considered. Dictated by: Josefina Bravo MD, PhD on 12/07/2022 at 16:19 Approved by: Josefina Bravo MD, PhD on 12/07/2022 at 16:20
[2022-12-07 15:59] LABS: Add Manual Diff / Slide Review NO; Basophils Absolute Auto 100 /uL (0-100); Basophils Percent Auto 0.7 % (0-2); Eosinophils Absolute Auto 200 /uL (0-450); Eosinophils Percent Auto 2.7 % (2-4); Hematocrit 35.5 % (41-53); Hemoglobin 11.5 g/dL (13.5-17.5); Lymphocytes Absolute Auto 1600 /uL (1100-4500); Mean Corpuscular HGB Conc 32.3 % (30-36); Mean Corpuscular Hemoglobin 22.5 PG (26-34); Mean Corpuscular Volume 69.7 fL (80-100); Monocytes Absolute Auto 900 /uL (0-900); Monocytes Percent Auto 10.6 % (3-14); Neutrophils Absolute Auto 5400 /uL (1500-7000); Platelet Count 316 X10^3/uL (150-400); Red Blood Cell Count 5.09 X10^6/uL (4.5-5.9); White Blood Cell Count 8.1 X10^3/uL (4.5-11.0)
[2022-12-07 16:13] LABS: INR 3.4 (0.9-1.3); Prothrombin Time 39.9 SECONDS (10.1-12.7)
[2022-12-07 16:16] LABS: Alanine Aminotransferase 16 IU/L (<50); Albumin 3.7 g/dL (3.5-5.0); Albumin Globulin Ratio 1.2 (1.0-2.8); Alkaline Phosphatase 83 U/L (38-126); Aspartate Aminotransferase 26 IU/L (17-59); BUN Creatinine Ratio 21.4 (6-22); Bilirubin Total 0.7 mg/dL (0.2-1.3); Blood Urea Nitrogen 21 mg/dL (9-20); Carbon Dioxide 28 mmol/L (22-32); Chloride 104 mmol/L (98-107); Creatine Kinase 46 U/L (55-170); Estimated Glomerular Filt Rate > 60 mL/min (>60); Glucose 87 mg/dL (80-110); HEMOLYSIS < 15 (0-50); Lipase 58 U/L (23-300); Magnesium 2.1 mg/dL (1.6-2.3); PTT Partial Thromboplastin Tim 44 SECONDS (26-36); Sodium 138 mmol/L (137-145); Total Protein 6.7 g/dL (6.3-8.2)
[2022-12-07 16:19] LABS: Microcytosis 1+; Ovalocytes 1+
[2022-12-07 16:26] LABS: NT-proBNP (BNP-Adult 18+) 1040 pg/mL (<125); Troponin I 0.017 ng/mL (0.01-0.034)
--- NOTE | 2022-12-07 20:52 | ED_ITS ---
HPI - Extremity Problem General Chief complaint: Extremity Problem,Nontraumatic Stated complaint: Lower extremity swelling Time Seen by Provider: 12/07/22 20:52 Source: patient and EMS Mode of arrival: EMS History of Present Illness HPI Narrative: Patient 67-year-old male history of coronary artery disease, valve replacement on atrial fibrillation, severe ulcerative colitis presenting today with bilateral knee pain. He reports that he has had increasing knee pain at the tibial tuberosity for the last 3-4 days. He went to the doctor's today for an INR check when he fell to the ground and was has been unable to get himself back up. He reports increasing weakness. Difficulty getting around needing to hold onto things. Severe pain. He denies any head injury nausea vomiting. No abdominal pain or changes. Records report that he is had ongoing knee pain since at least the end of October. The report for left knee pain saying that his knee just gives out on him. Related Data Home Medications Medication Instructions Recorded Confirmed cholecalciferol (vitamin D3) 25 1,000 unit PO DAILY 11/09/18 11/19/22 mcg (1,000 unit) capsule magnesium citrate 125 mg capsule 125 mg PO DAILY 11/09/18 11/19/22 balsalazide 750 mg capsule 2,250 mg PO TID 07/29/21 11/19/22 multivitamin 1 tab PO DAILY 07/29/21 11/19/22 metoprolol succinate 100 mg 100 mg PO 04/16/22 11/19/22 tablet,extended release 24 hr metoprolol succinate 25 mg 25 mg PO 04/16/22 11/19/22 tablet,extended release 24 hr Previous Rx's Medication Instructions Recorded warfarin 5 mg tablet 5 mg PO DAILY #10 tabs 04/13/22 amlodipine 5 mg tablet 5 mg PO DAILY #90 tabs 04/22/22 warfarin 4 mg tablet 4 mg PO DAILY #60 tabs 07/09/22 budesonide 3 mg 9 mg PO DAILY #270 ea 09/17/22 capsule,delayed,extended release warfarin 3 mg tablet 3 mg PO DAILY #90 tabs 11/19/22 prednisone 10 mg tablet 10 mg PO DAILY #30 tabs 12/07/22 Allergies Allergy/AdvReac Type Severity Reaction Status Date / Time No Known Drug Allergies Allergy Verified 10/26/22 14:53 Review of Systems Review of Systems ROS Unobtainable: All systems reviewed & are unremarkable except as noted in HPI and below Patient History Medical History Cardiac arrest History of high blood pressure Hx of stroke associated with dehydration Surgical History S/P CABG x 2 Social History Smoking Status: Former smoker substance use type: marijuana Smoking Status: Former smoker Substance Use Type: marijuana Exam Initial Vital Signs Initial Vital Signs: Vital Signs Pulse Rate 70 12/07/22 15:29 Respiratory Rate 14 12/07/22 15:29 Pulse Oximetry 96 12/07/22 15:29 GENERAL: Alert 67-year-old male and in no acute distress. HEENT: Head atraumatic,EOMI, pupils reactive, face symmetric, moist mucous membranes CARDIOVASCULAR: Regular rate and rhythm without murmurs, rubs or gallops. RESPIRATORY: Breath sounds equal bilaterally, no wheezes rales or rhonchi. ABDOMEN: Soft, nontender. Normoactive bowel sounds all 4 quadrants. No guarding or rebound. EXTREMITIES: Normal range of motion, no clubbing or edema. Neurovascularly intact Bilateral knees no significant edema erythema. Tender at bilateral tibial tuberosities. Able to flex and extend each knee although limited secondary to pain. NEUROLOGICAL: Alert and oriented x4.Normal gait and speech. SKIN: Warm, dry, no laceration, no petechiae, no rashes or lesions. Course Orders Ordered: Discontinued Medications Amlodipine Besylate (Amlodipine 5 Mg Tablet) 5 mg PO NOW ONE Stop: 12/07/22 21:17 Last Admin: 12/07/22 21:27 Dose: 5 mg Documented By: SHARLENE Aspirin (Aspirin 81 Mg Chew Tab) 324 mg PO NOW ONE Stop: 12/07/22 15:42 Last Admin: 12/07/22 17:31 Dose: Not Given Documented By: VALERIANO Methylprednisolone (Methylprednisolone 125 Mg/2 Ml Vial) 125 mg IV NOW ONE Stop: 12/07/22 21:06 Last Admin: 12/07/22 21:27 Dose: 125 mg Documented By: SHARLENE Metoprolol Succinate (Metoprolol Er 50 Mg Tablet) 125 mg PO NOW ONE Stop: 12/07/22 21:18 Last Admin: 12/07/22 21:27 Dose: 125 mg Documented By: SHARLENE Oxycodone/Acetaminophen (Oxycodone/Apap 5/325 Prepack) 1 bottle MISC SEEINSTR ONE Stop: 12/07/22 21:20 Last Admin: 12/07/22 21:26 Dose: 1 bottle Documented By: SHARLENE Vital Signs Vital signs: Vital Signs - 8 hr 12/07/22 21:00 12/07/22 21:00 12/07/22 21:27 Pulse Rate 62 63 Respiratory Rate 25 H Blood Pressure 194/92 H 165/82 H Pulse Oximetry 99 12/07/22 21:25 12/07/22 21:25 Pulse Rate 65 Respiratory Rate 20 Blood Pressure 165/82 H Pulse Oximetry MDM - Extremity (Nontraumatic) Lab Data 12/07/22 15:42 12/07/22 15:42 Labs: Lab Results 12/07/22 12/07/22 12/07/22 Range/Units 15:42 15:42 15:42 WBC 8.1 (4.5-11.0) X10^3/uL RBC 5.09 (4.5-5.9) X10^6/uL Hgb 11.5 L (13.5-17.5) g/dL Hct 35.5 L (41-53) % MCV 69.7 L (80-100) fL MCH 22.5 L (26-34) PG MCHC 32.3 (30-36) % RDW 17.0 H (11.6-14.8) % Plt Count 316 (150-400) X10^3/uL Neut % (Auto) 66.0 (50-75) % Lymph % (Auto) 20.0 L (25-40) % Ware % (Auto) 10.6 (3-14) % Eos % (Auto) 2.7 (2-4) % Baso % (Auto) 0.7 (0-2) % Neut # (Auto) 5400 (4983-1678) /uL Lymph # (Auto) 1600 (8545-7740) /uL Ware # (Auto) 900 (0-900) /uL Eos # (Auto) 200 (0-450) /uL Baso # (Auto) 100 (0-100) /uL RBC Morphology See below Microcytosis 1+ H Ovalocytes 1+ H PT 39.9 H (10.1-12.7) SECONDS INR 3.4 H (0.9-1.3) APTT 44 H (26-36) SECONDS Sodium 138 (137-145) mmol/L Potassium 4.0 (3.4-5.1) mmol/L Chloride 104 (98-107) mmol/L Carbon Dioxide 28 (22-32) mmol/L BUN 21 H (9-20) mg/dL Creatinine 0.98 (0.66-1.25) mg/dL Estimated GFR > 60 (>60) mL/min BUN/Creatinine Ratio 21.4 (6-22) Glucose 87 (80-110) mg/dL Calcium 9.0 (8.4-10.2) mg/dL Magnesium 2.1 (1.6-2.3) mg/dL Total Bilirubin 0.7 (0.2-1.3) mg/dL AST 26 (17-59) IU/L ALT 16 (<50) IU/L Alkaline Phosphatase 83 (38-126) U/L Total Creatine Kinase 46 L (55-170) U/L Troponin I 0.017 (0.01-0.034) ng/mL NT-Pro-B Natriuret Pep 1040 H (<125) pg/mL Total Protein 6.7 (6.3-8.2) g/dL Albumin 3.7 (3.5-5.0) g/dL Globulin 3.0 (1.7-4.1) g/dL Albumin/Globulin Ratio 1.2 (1.0-2.8) Lipase 58 (23-300) U/L [facility] Narrative Medical decision making narrative: Patient has bilateral tibial tuberosity pain. No significant edema. Offered narcotics however reports that he does not want them. There is no evidence of bursitis or infection. I suspect it tendinopathy. Can not have NSAIDs secondary to warfarin. He is already taking budesonide for his ulcerative colitis. He reports he is done well prednisone. Will give him a dose of Solu- Medrol stop the budesonide start prednisone see if it helps. Labs have been reviewed INR today is 3.4. Patient report that he will hold his warfarin. No other clinical significance without leukocytosis area or electrolyte abnormality. He is afebrile. No concern for septic joint unclear exactly what is causing his pain but strong suspicion for a tendinitis. Discharge Plan Departure Patient Disposition: Home Clinical Impression: Tendinitis Instructions: DI for Tendinitis Activity Restrictions/Additional Instructions: *You have been diagnosed with tendinitis *What to do: At this time your x-rays are negative I am sorry urine so much pain. I hope the prednisone helps. Use walker as needed. *Continue to take medications as directed--> [facility] Stop taking budesonide Start taking prednisone 40 mg once a day for 3 days, 30 mg once a day for 3 days, 20 mg once a day for 3 days and 10 mg once a day for 3 days Then restart your budesonide *Follow up with your primary care provider in 2-3 days or call [phone] *Return to ER if you should have fever redness pain falling or any new, worsening or concerning symptoms Prescriptions: New prednisone 10 mg tablet 10 mg PO DAILY Qty: 30 0RF Rx Instructions: day 1-3: 40 mg once a day day 4-6: 30 mg once a day day 7-9: 20 mg once a day day 10-12: 10 mg once a day No Action amlodipine 5 mg tablet 5 mg PO DAILY Qty: 90 3RF budesonide 3 mg capsule,delayed,extend.release 9 mg PO DAILY Qty: 270 0RF Rx Instructions: Take three tablets daily by mouth cholecalciferol (vitamin D3) 1,000 unit capsule 1,000 unit PO DAILY magnesium citrate 125 mg capsule 125 mg PO DAILY warfarin 4 mg tablet 4 mg PO DAILY Qty: 60 1RF multivitamin Tablet 1 tab PO DAILY balsalazide 750 mg capsule 2,250 mg PO TID warfarin 5 mg tablet 5 mg PO DAILY Qty: 10 0RF metoprolol succinate 25 mg tablet extended release 24 hr 25 mg PO metoprolol succinate 100 mg tablet extended release 24 hr 100 mg PO warfarin 3 mg tablet 3 mg PO DAILY Qty: 90 0RF Referrals: Phong Son MD [Primary Care Provider] - Stand Alone Forms: Patient Portal/API
[2022-12-07] MEDS: OXYCODONE/APAP 5/325 PREPACK 1 BOTTLE MISC (21:26)
[2022-12-07] MEDS: AMLODIPINE 5 MG TABLET PO (21:27)
[2022-12-07] MEDS: methylPREDNISolone 125 MG/2 ML VIAL IV (21:27)
[2022-12-07] MEDS: METOPROLOL ER 50 MG TABLET 125 MG PO (21:27)
== END 2022-12-07 21:50 | disposition home or self-care (01) ==
PROVIDERS: Emergency Medicine; Emergency Provider Emergency Medicine; PCP Family Medicine
DX: M76.822 Posterior tibial tendinitis, left leg (principal); M76.821 Posterior tibial tendinitis, right leg; R07.9 Chest pain, unspecified; Z79.01 Long term (current) use of anticoagulants
CPT/HCPCS: 36415; 71045; 73562; 80053; 82550; 83690; 83735; 83880; 84484; 85025; 85610; 85730; 93005; 93010; 96374; 99284; J2930

== ENCOUNTER → 2023-02-01 13:24 | Outpatient (CLI) | payer MEDICARE, SELFPAY ==
[2023-02-01 19:21] LABS: BUN Creatinine Ratio 20.6 (6-22); Blood Urea Nitrogen 22 mg/dL (9-20); Calcium 9.4 mg/dL (8.4-10.2); Carbon Dioxide 31 mmol/L (22-32); Chloride 102 mmol/L (98-107); Cholesterol 185 mg/dL (140-199); Estimated Glomerular Filt Rate > 60 mL/min (>60); Glucose 109 mg/dL (80-110); HDL Cholesterol 53 mg/dL (40-60); HEMOLYSIS 24 (0-50); LDL Cholesterol Calculated 101 mg/dL (<100); Potassium 4.5 mmol/L (3.4-5.1); Sodium 139 mmol/L (137-145); Triglycerides 157 mg/dL (35-150)
[2023-02-01 19:39] LABS: Add Manual Diff / Slide Review NO; Basophils Absolute Auto 100 /uL (0-100); Basophils Percent Auto 0.8 % (0-2); Eosinophils Absolute Auto 400 /uL (0-450); Eosinophils Percent Auto 3.6 % (2-4); Hematocrit 38.6 % (41-53); Hemoglobin 12.4 g/dL (13.5-17.5); Lymphocytes Absolute Auto 1200 /uL (1100-4500); Lymphocytes Percent Auto 11.6 % (25-40); Mean Corpuscular Hemoglobin 22.1 PG (26-34); Mean Corpuscular Volume 69.2 fL (80-100); Monocytes Absolute Auto 900 /uL (0-900); Monocytes Percent Auto 8.3 % (3-14); Neutrophils Absolute Auto 7800 /uL (1500-7000); Neutrophils Percent Auto 75.7 % (50-75); Platelet Count 308 X10^3/uL (150-400); Red Blood Cell Count 5.59 X10^6/uL (4.5-5.9); Red Cell Distribution Width 18.9 % (11.6-14.8); White Blood Cell Count 10.3 X10^3/uL (4.5-11.0)
[2023-02-01 19:41] LABS: Erythrocyte Sedimentation Rate 5 MM/HR (0-15)
[2023-02-01 20:02] LABS: Anisocytosis 1+
[2023-02-01 20:04] LABS: Microcytosis 1+; Ovalocytes 1+
== END ==
PROVIDERS: PCP Family Medicine; Visit Provider Family Medicine
DX: I25.810 Atherosclerosis of coronary artery bypass graft(s) without angina pectoris (principal); Z95.1 Presence of aortocoronary bypass graft; I25.10 Atherosclerotic heart disease of native coronary artery without angina pectoris; M76.51 Patellar tendinitis, right knee; M76.52 Patellar tendinitis, left knee; Z95.3 Presence of xenogenic heart valve; Z79.01 Long term (current) use of anticoagulants; E78.5 Hyperlipidemia, unspecified; I10 Essential (primary) hypertension; Z79.52 Long term (current) use of systemic steroids; K51.90 Ulcerative colitis, unspecified, without complications
CPT/HCPCS: 80048; 80061; 85025; 85651

== ENCOUNTER → 2024-01-09 09:49 | Outpatient (CLI) | payer MEDICARE, MEDICAID, SELFPAY ==
[2024-01-09 20:35] LABS: Add Manual Diff / Slide Review NO; Basophils Absolute Auto 100 /uL (0-100); Basophils Percent Auto 0.9 % (0-2); Eosinophils Absolute Auto 1400 /uL (0-450); Eosinophils Percent Auto 17.8 % (2-4); Hemoglobin 15.1 g/dL (13.5-17.5); Lymphocytes Absolute Auto 1700 /uL (1100-4500); Lymphocytes Percent Auto 22.4 % (25-40); Mean Corpuscular HGB Conc 32.8 % (30-36); Mean Corpuscular Hemoglobin 26.5 PG (26-34); Mean Corpuscular Volume 80.8 fL (80-100); Monocytes Absolute Auto 800 /uL (0-900); Monocytes Percent Auto 9.9 % (3-14); Neutrophils Absolute Auto 3800 /uL (1500-7000); Platelet Count 245 X10^3/uL (150-400); Red Cell Distribution Width 15.4 % (11.6-14.8); White Blood Cell Count 7.8 X10^3/uL (4.5-11.0)
[2024-01-09 20:41] LABS: HEMOLYSIS < 15 (0-50); Iron 64 ug/dL (49-181)
[2024-01-09 20:53] LABS: BUN Creatinine Ratio 19.3 (6-22); Blood Urea Nitrogen 22 mg/dL (9-20); Calcium 9.9 mg/dL (8.4-10.2); Carbon Dioxide 30 mmol/L (22-32); Chloride 103 mmol/L (98-107); Cholesterol 273 mg/dL (140-199); Estimated Glomerular Filt Rate > 60 mL/min (>60); Glucose 101 mg/dL (80-110); HDL Cholesterol 66 mg/dL (40-60); HEMOLYSIS < 15 (0-50); LDL Cholesterol Calculated 176 mg/dL (<100); Potassium 4.6 mmol/L (3.4-5.1); Sodium 139 mmol/L (137-145); Triglycerides 153 mg/dL (35-150)
[2024-01-09 21:28] LABS: Percent Iron Saturation 14 % (20-50); Total Iron Binding Capacity 457 ug/dL (261-462); Transferrin 354 mg/dL (206-381)
[2024-01-09 21:43] LABS: Prostate Specific Antigen Scrn 1.49 ng/mL (0.1-4.0)
[2024-01-09 22:03] LABS: Vitamin B12 847 pg/mL (239-931)
== END ==
PROVIDERS: PCP Family Medicine; Visit Provider Family Medicine
DX: I48.0 Paroxysmal atrial fibrillation (principal); I10 Essential (primary) hypertension; Z12.5 Encounter for screening for malignant neoplasm of prostate; D64.9 Anemia, unspecified; K51.90 Ulcerative colitis, unspecified, without complications; E78.5 Hyperlipidemia, unspecified; I25.10 Atherosclerotic heart disease of native coronary artery without angina pectoris
CPT/HCPCS: 80048; 80061; 82607; 83540; 83550; 85025; G0103

== ENCOUNTER → 2024-05-16 14:44 | Outpatient (CLI) | payer MEDICARE, MEDICAID, SELFPAY | PROVIDERS: PCP Family Medicine; Visit Provider Physician Assistant | DX: L03.012 Cellulitis of left finger (principal) | CPT/HCPCS: 87070; 87075; 87077; 87147; 87185; 87205 ==